=== PATIENT | female | born 1990 | race Two or more races ===

== ENCOUNTER 2024-07-31 14:05 | Day surgery (SDC) | payer MEDICAID, SELFPAY ==
[2024-07-31] VITALS (18 sets, daily range): BP systolic 95–118; BP diastolic 66–90; PULSE 69–108; RESP 16–95; TEMP 36.1–37.1; O2SAT 95–100; BMI 29.2
--- NOTE | 2024-07-31 14:42 | PD.EDVAGBL ---
ED OB Contraction Preg RMI/HPI General Chief complaint: Recheck/Abnormal Lab/Rx Stated complaint: Referred by PCP for possible retained placenta Time Seen by Provider: 07/31/24 14:27 Source: patient Arrival date/time: 07/31/24 14:05 34-year-old female with no known medical history presents to the emergency room with a chief complaint of vaginal spotting generalized weakness fatigue x 1 week. Patient states she was sent over by her OB to rule out any retained products as she had a miscarriage on 07/01/2024. Mode of arrival: ambulatory Limitations: no limitations Related Data Home Medications ?Medication ?Instructions ?Recorded ?Confirmed [id number]-[id number] 1 mg 1 tab PO QDAY 02/01/21 02/01/21 tablet Allergies Allergy/AdvReac Type Severity Reaction Status Date / Time No Known Allergies Allergy Verified 09/11/22 22:21 ED Exam General Limitations: Present no limitations Course Orders Category Date Time Status US transvaginal Stat Exams 07/31/24 14:36 Ordered ABO/RH Type Stat Lab 07/31/24 14:36 Ordered Beta HCG,Quantitative Stat Lab 07/31/24 14:36 Ordered CBC Stat Lab 07/31/24 14:36 Ordered CMP [Comprehensive Metabolic Panel] Stat Lab 07/31/24 14:36 Ordered UA [Urinalysis] Stat Lab 07/31/24 14:36 Ordered Vital Signs Vital signs: Vital Signs Temperature 98.3 F 07/31/24 14:32 Pulse Rate 108 H 07/31/24 14:32 Respiratory Rate 16 07/31/24 14:32 Blood Pressure 109/74 07/31/24 14:32 Pulse Oximetry (%) 98 07/31/24 14:32 Oxygen Delivery Method Room Air 07/31/24 14:32 Discharge Plan Prescriptions/Referrals Prescriptions/Med Rec: No Action 1 mg Tablet 1 tab PO QDAY Patient/Caregiver Discharge Instructions Print Language: Moldovan
--- NOTE | 2024-07-31 15:18 | XR_ITS ---
Examination: Pelvic ultrasound, transabdominal, complete Technique: Transabdominal ultrasound of the pelvis performed using grayscale imaging Date and time of exam: July 31, 2024 1521 hours INDICATIONS: Heavy vaginal bleeding beginning 2 weeks ago FINDINGS: Uterus 11.3 cm endometrial stripe 3.0 cm with heterogeneous echogenicity in the fundus and body endometrial regions No recognizable intrauterine gestation Right ovary 3.0 cm arterial flow 12 mm follicle Left ovary 2.3 cm arterial flow IMPRESSION: Findings most consistent with retained products of conception
[2024-07-31 15:22] LABS: Basophils % (Auto) 0 % (0-2.5); Eosinophils % (Auto) 0 % (0-10); Immature Granulocytes % (Auto) 1 % (0-0); Immature Granulocytes Auto 0.08 Thou/mm3 (0.00-0.00); Lymphocytes # (Auto) 2.3 Thou/mm3 (1.0-4.8); Lymphocytes % (Auto) 22 % (10-50); Mean Corpuscular HGB Conc 31.3 g/dl (31.0-37.0); Mean Corpuscular Hemoglobin 25.7 pg (25.0-35.0); Mean Corpuscular Volume 82 fL (80-100); Monocytes # (Auto) 0.5 Thou/mm3 (0.0-0.8); Monocytes % (Auto) 5 % (0-12); Neutrophils # (Auto) 7.5 Thou/mm3 (1.8-7.7); Neutrophils % (Auto) 72 % (37-80); Nucleated Red Blood Cell # 0.02 Thou/mm3 (0.00-0.00); Nucleated Red Blood Cell % 0 /100 WBC (0); Platelet Count 513 Thou/mm3 (140-440); RDW Standard Deviation 45.4 fL (36.4-46.3); Red Blood Count 2.41 Miln/mm3 (4.00-5.20); White Blood Count 10.3 Thou/mm3 (3.6-11.0)
[2024-07-31 15:23] LABS: Collection Type, Urine Clean Catch
[2024-07-31 15:26] LABS: Hematocrit 19.8 % (36.0-46.0); Hemoglobin 6.2 g/dL (12.0-16.0)
--- NOTE | 2024-07-31 15:28 | PD.EDRME ---
Rapid Medical Screening Exam RME Arrival date/time: 07/31/24 14:05 34-year-old female with no known medical history presents to the emergency room with a chief complaint of vaginal spotting generalized weakness fatigue x 1 week. Patient states she was sent over by her OB to rule out any retained products as she had a miscarriage on 07/01/2024. I have greeted and performed a focused initial assessment of this patient. A comprehensive ED assessment and evaluation of the patient, analysis of all test results, and completion of the medical decision making process will be conducted by additional ED providers. Chief Complaint: Recheck/Abnormal Lab/Rx Time Seen by Provider: 07/31/24 14:27 Vital signs: Vital Signs Temperature 98.3 F 07/31/24 14:32 Pulse Rate 108 H 07/31/24 14:32 Respiratory Rate 16 07/31/24 14:32 Blood Pressure 109/74 07/31/24 14:32 Pulse Oximetry (%) 98 07/31/24 14:32 Oxygen Delivery Method Room Air 07/31/24 14:32 Vital signs reviewed by provider: Yes
[2024-07-31 15:33] LABS: Bilirubin,Urine Negative (Negative); Blood,Urine 1+ (Negative); Clarity,Urine Clear (Clear/Hazy); Color,Urine Lt-Yellow (Lt Yel-Yel); Glucose, Urine Negative (Negative); Ketones,Urine Negative (Negative); Leukocyte Esterase,Urine Positive (Negative); Nitrite,Urine Negative (Negative); Protein,Urine Negative (Neg - Trace); RBC,Urine 4 /hpf (0-3); Specific Gravity,Urine 1.021 (1.001-1.035); Squamous Epithelial Cell,Urine 5 /hpf (0-5); Urobilinogen,Urine Negative mg/dL (0.0-1.0); WBC,Urine 23 /hpf (0-5)
[2024-07-31 15:49] LABS: Alanine Aminotransferase 13 U/L (10-49); Albumin, Serum 4.6 gm/dL (3.5-5.0); Albumin/Globulin Ratio 1.4 (1.2-2.2); Alkaline Phosphatase 103 U/L (46-116); Anion Gap 11 (7-16); Aspartate Amino Transferase 15 U/L (0-34); BUN/Creatinine Ratio 16 Ratio (12-20); Bilirubin,Total 0.4 mg/dL (0.3-1.2); Blood Urea Nitrogen 11 mg/dL (9-23); Calcium 9.4 mg/dL (8.3-10.6); Calcium (Corrected) 9.4 mg/dL (8.5-10.1); Carbon Dioxide 23.9 mMol/L (20.0-31.0); Chloride 106 mMol/L (98-107); Creatinine (Component) 0.7 mg/dL (0.6-1.3); Estimated Creatinine Clearance 111.8 mL/min (>60); Globulin 3.2 gm/dL (2.3-3.5); Glucose 100 mg/dL (74-106); Osmolality,Calculated 280 (275-295); Potassium 3.8 mMol/L (3.4-5.1); Sodium 141 mMol/L (136-145); Total Protein 7.8 gm/dL (5.7-8.2); eGFR > 60 See Note
[2024-07-31 15:57] LABS: Partial Thromboplastin Time 23.6 Seconds (22.0-36.0); Prothrombin Time 10.7 Seconds (9.0-12.2)
[2024-07-31 16:15] LABS: Beta HCG,Quantitative 17643 mIU/mL (<5.0)
--- NOTE | 2024-07-31 18:40 | PD.EDVAGBL ---
ED OB Contraction Preg RMI/HPI General Chief complaint: Recheck/Abnormal Lab/Rx Stated complaint: Referred by PCP for possible retained placenta Time Seen by Provider: 07/31/24 14:27 Arrival date/time: 07/31/24 14:05 34-year-olD female, G5, P4 SAB 1, presents to the emergency room with a chief complaint of severe vaginal bleeding, fatigue and tiredness. Patient indicates on July 01 when she was approximately 8 weeks along, she suffered a miscarriage. She had some mild bleeding following the miscarriage and then on July 17 she began bleeding heavily. She presented to [facility] emergency room on 2 different occasions and they discharged her home. She was seen by her OB physician today and due to her symptoms and significant vaginal bleeding, she was sent here for further workup and evaluation. Patient indicates that she has been passing very large clots approximately the 6 cm wide by 12 cm long and her maxi pads. She is going through approximately 3 maxi pads per hour. Associated symptoms also include fever. Mode of arrival: ambulatory Limitations: no limitations RME / HPI RME / HPI Narrative: 07/31/24 14:05 34-year-old female with no known medical history presents to the emergency room with a chief complaint of vaginal spotting generalized weakness fatigue x 1 week. Patient states she was sent over by her OB to rule out any retained products as she had a miscarriage on 07/01/2024. I have greeted and performed a focused initial assessment of this patient. A comprehensive ED assessment and evaluation of the patient, analysis of all test results, and completion of the medical decision making process will be conducted by additional ED providers. 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 NOW Care 07/31/24 18:52 Active Milk Wagon Driver STAT Care 07/31/24 19:00 Active Continuous Pulse Oximetry Care 07/31/24 18:46 Active Continuous Pulse Oximetry STAT Care 07/31/24 19:00 Active EKG (ED ONLY) *Do not use* NOW Care 07/31/24 19:00 Active In and Out Catheter X1PRN Care 07/31/24 19:00 Active Insert IV NOW Care 07/31/24 19:00 Active NPO STAT Care 07/31/24 19:00 Active Obtain Written Consent For: NOW Care 07/31/24 18:46 Active Strict Intake and Output Routine Care 07/31/24 19:00 Ordered Transfuse,blood/blood products NOW Care 07/31/24 18:44 Active Vital Signs, Non-Routine Timed Care 07/31/24 18:53 Ordered EKG (ED Only) Stat Exams 07/31/24 19:00 Ordered US OB transvaginal Stat Exams 07/31/24 19:09 Ordered US pelvic comp SEPSIS PROTOCOL Stat Exams 07/31/24 19:09 Ordered US pelvic complete Stat Exams 07/31/24 15:18 Completed XR chest 1V portable Stat Exams 07/31/24 19:00 Ordered Arterial Blood Gas Stat Lab 07/31/24 19:02 Ordered B-Type Natriuretic Peptide Stat Lab 07/31/24 19:31 Received Beta HCG,Quantitative Stat Lab 07/31/24 14:52 Completed Blood Culture (Lab) Stat Lab 07/31/24 19:21 Received CBC Auto Diff Post-Transfusion Stat Lab 07/31/24 19:31 Received CBC Stat Lab 07/31/24 14:52 Completed CMP [Comprehensive Metabolic Panel] Stat Lab 07/31/24 14:52 Completed FFP [Fresh Frozen Plasma] Stat Lab 07/31/24 14:52 Results Hgb and Hct Post-Transfusion Stat Lab 07/31/24 19:31 Received LDH (Lactate Dehydrogenase) Stat Lab 07/31/24 19:21 Received Lactate (Lactic Acid) Stat Lab 07/31/24 19:21 Received Lipase Stat Lab 07/31/24 19:21 Received Magnesium Stat Lab 07/31/24 19:21 Received PT [Prothrombin Time with INR] Stat Lab 07/31/24 14:52 Completed PTT [Partial Thromboplastin Time] Stat Lab 07/31/24 14:52 Completed Partial Thromboplastin Time Stat Lab 07/31/24 19:21 Received Phosphorous Stat Lab 07/31/24 19:21 Received Procalcitonin Stat Lab 07/31/24 19:21 Received Prothrombin Time with INR Stat Lab 07/31/24 19:21 Received Red Blood Cells Stat Lab 07/31/24 14:52 Results Troponin I Stat Lab 07/31/24 19:21 Received Type and Screen Stat Lab 07/31/24 14:52 Results UA [Urinalysis] Stat Lab 07/31/24 15:15 Completed Urinalysis Stat Lab 07/31/24 19:00 Ordered Urine Culture Stat Lab 07/31/24 19:00 Ordered Acetaminophen Tab [Tylenol Tab] Med 07/31/24 18:44 Discontinued 650 mg PO X1 ONE DiphenhydrAMINE [Benadryl] Med 07/31/24 18:44 Discontinued 25 mg PO X1 ONE Doxycycline Inj [Vibramycin Inj] 100 mg Med 07/31/24 19:00 Active Sodium Chloride 0.9% (Pop) [NS 0.9% mini bag] 100 ml IV X1 Furosemide [Lasix Inj] Med 07/31/24 18:49 Discontinued 40 mg IVP X1 ONE Piper/Tazo 3.375 gm Premix [Zosyn] Med 07/31/24 19:03 Discontinued 3.375 gm in 50 ml IV X1 Sodium Chloride 0.9% 1000 ml [Ns] 1,572 ml Med 07/31/24 19:00 Active IV 1,572 mls/hr Tranexamic Acid 1,000 mg Ivpb [Tranexamic Acid Ivpb] Med 07/31/24 19:19 Active 1,000 mg in 100 ml IV [id number] Oxygen Delivery NOW RT 07/31/24 19:00 Active Vital Signs Vital signs: Vital Signs Temperature 98.3 F 07/31/24 14:32 Pulse Rate 108 H 07/31/24 14:32 Respiratory Rate 16 07/31/24 14:32 Blood Pressure 109/74 07/31/24 14:32 Pulse Oximetry (%) 98 07/31/24 14:32 Oxygen Delivery Method Room Air 07/31/24 14:32 Vaginal Bleeding Evaluation data Interpretation Summary: PELVIC ULTRASOUND: FINDINGS: Uterus 11.3 cm endometrial stripe 3.0 cm with heterogeneous echogenicity in the fundus and body endometrial regions No recognizable intrauterine gestation Right ovary 3.0 cm arterial flow 12 mm follicle Left ovary 2.3 cm arterial flow IMPRESSION: Findings most consistent with retained products of conception Medications / Prescriptions Medication administrations:: Medication Administration History Sodium Chloride (Ns) 1,572 mls @ 1,572 mls/hr 30 ml/kg infuse over 60 min (1572 ml) IV .Q1H ONE Stop: 07/31/24 19:59 Doxycycline Hyclate 100 mg/ (Sodium Chloride) 100 mls @ 100 mls/hr IV X1 ONE Stop: 07/31/24 19:59 Tranexamic Acid (Tranexamic Acid Ivpb) 1,000 mg in 100 mls @ 200 mls/hr IV [id number] PRN PRN Reason: VAG BLEED - SEV (PER DR. RAINEY) Discontinued Medications Acetaminophen (Acetaminophen 325 Mg Tablet) 650 mg PO X1 ONE Stop: 07/31/24 18:45 Diphenhydramine HCl (Diphenhydramine 25 Mg Capsule) 25 mg PO X1 ONE Stop: 07/31/24 18:45 Furosemide (Furosemide Inj 10 Mg/Ml Vial 2 Ml) 40 mg IVP X1 ONE Stop: 07/31/24 18:50 Piperacillin/Tazobactam/Dextrose (Zosyn) 3.375 gm in 50 mls @ 100 mls/hr IV X1 ONE Stop: 07/31/24 19:32 Consultations Consultation(s) initiated? (list below): Yes Consultation #1 (Physician, Specialty, Details): Dr. Rainey, [facility] [employer]SEL[employer]. Requests TXA 1Gm IV Consultation #2 (Physician, Specialty, Details): Dr. Rainey calls back indicating US reveals retained POC. Will schedule patient for D&C in the OR. Diagnosis Vaginal Bleeding Differential Diagnosis: missed , dysfunctional uterine bleeding, menometrorrhagia, incomplete and vaginal bleeding Most likely diagnosis given after review of the tests above:: SEPSIS SECONDARY TO RETAINED PRODUCTS OF CONCEPTION. Admission Indicated Admission indicated?: indicated Explain why admission is indicated or not indicated:: PATIENT WILL NEED TO BE ADMITTED FOR D&C AND BLOOD TRANSFUSIONS. Discharge Plan Prescriptions/Referrals Prescriptions/Med Rec: No Action 1 mg Tablet 1 tab PO QDAY Referrals: Trell Serna MD [Primary Care Provider] - In 1 week Patient/Caregiver Discharge Instructions Print Language: Chinese
--- NOTE | 2024-07-31 19:00 | EKG_ITS ---
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
--- NOTE | 2024-07-31 19:00 | XR_ITS ---
Examination: PA chest single view TECHNIQUE: Upright PA chest single view Exam date and time: July 31, 2024, 194 hours INDICATIONS: Fatigue today, sepsis alert FINDINGS: Normal heart size. Lungs are clear. Osseous structures are intact. IMPRESSION: No active disease
[2024-07-31 19:46] LABS: Lactate (Lactic Acid) 0.6 mMol/L (0.4-2.0)
--- NOTE | 2024-07-31 19:50 | PD.GYNHP ---
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 MEDRANO is a 34 year old female , presented to ER with heavy vaginal bleeding , saturating maxi pads within 30 minutes . Patient also feels she had fever at home , although has remained afebrile on presentation. Pt had a miscarraige in 1st week of June. Patient reports that she went to her OB in [place] and was given oral meds for completion of . However she kept on bleeding and presented to [place] ER and has been bleeding since then. But today patient reported heavy bleeding which made her come to ER here. 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 MIXER Vital Signs Temp Pulse Resp BP Pulse Ox O2 Del Method 98.3 F 108 H 16 109/74 98 Room Air 07/31/24 14:32 07/31/24 14:32 07/31/24 14:32 07/31/24 14:32 07/31/24 14:32 07/31/24 14:32 Constitutional Constitutional: no acute distress Routine HEENT Exam Head: Present normocephalic and atraumatic Eye: Present EOMI and PERRL ENT: Present mucous membranes moist Routine Neck Exam Neck: Present supple and trachea midline Routine Respiratory Exam Respiratory: Present chest non-tender, lungs clear, normal breath sounds and no resp distress Routine Cardiovascular Exam Cardiovascular: Present RRR Routine Abdominal Exam Abdominal: Present soft and normoactive bowel sounds Routine Exam Comments: defeered Routine Extremities Exam Extremities: Present full ROM Routine Skin Exam Skin: Present intact and dry Routine Neurological Exam Neurological: Present alert, oriented X3 and CN II-XII intact Routine Psychiatric Exam Psychiatric: Present normal affect and normal thought process PIGMENT MIXER - Results Labs 07/31/24 19:31 07/31/24 14:52 Labs: Short CBC 07/31/24 Range/Units 14:52 WBC 10.3 (3.6-11.0) Thou/mm3 Hgb 6.2 L* (12.0-16.0) g/dL Hct 19.8 L* (36.0-46.0) % Plt Count 513 H (140-440) Thou/mm3 BMP 07/31/24 14:52 Sodium 141 Potassium 3.8 Chloride 106 Carbon Dioxide 23.9 BUN 11 Creatinine 0.7 Glucose 100 Calcium 9.4 Liver Function 07/31/24 Range/Units 14:52 Total Bilirubin 0.4 (0.3-1.2) mg/dL AST 15 (0-34) U/L ALT 13 (10-49) U/L Alkaline Phosphatase 103 (46-116) U/L Albumin 4.6 (3.5-5.0) gm/dL Urine 07/31/24 Range/Units 15:15 Urine Color Lt-Yellow (Lt Yel-Yel) Urine Clarity Clear (Clear/Hazy) Urine pH 7.0 (5.0-7.0) Ur Specific [place] 1.021 (1.001-1.035) Urine Protein Negative (Neg - Trace) Urine Glucose (UA) Negative (Negative) Impressions Impression: 34 y/o P4 with possible incomplete Symptomatic anemia from Heavy vaginal bleeding Hb 6.2 on arrival, tachycardic US: Suggestive of retained products of conception [facility] [place] [address] Sepsis work up NEGATIVE Normal procalcitonin and lactic acid Antibiotics ordered already Hamzah provider Assessment and Plan Additional Assessment & Plan Additional Plan: 1) antibiotics ordered 2) 3units PRBC 3) fIbrinogen pending '4) Suction D&C Quality Measures Quality Measures VTE prophylaxis
[2024-07-31 19:57] LABS: Basophils % (Auto) 0 % (0-2.5); Eosinophils % (Auto) 0 % (0-10); Immature Granulocytes % (Auto) 1 % (0-0); Immature Granulocytes Auto 0.05 Thou/mm3 (0.00-0.00); Lymphocytes # (Auto) 2.3 Thou/mm3 (1.0-4.8); Lymphocytes % (Auto) 22 % (10-50); Mean Corpuscular HGB Conc 31.4 g/dl (31.0-37.0); Mean Corpuscular Hemoglobin 26.1 pg (25.0-35.0); Mean Corpuscular Volume 83 fL (80-100); Monocytes # (Auto) 0.4 Thou/mm3 (0.0-0.8); Monocytes % (Auto) 4 % (0-12); Neutrophils # (Auto) 7.5 Thou/mm3 (1.8-7.7); Neutrophils % (Auto) 73 % (37-80); Nucleated Red Blood Cell # 0.03 Thou/mm3 (0.00-0.00); Nucleated Red Blood Cell % 0 /100 WBC (0); Platelet Count 495 Thou/mm3 (140-440); RDW Standard Deviation 46.2 fL (36.4-46.3); Red Blood Count 2.34 Miln/mm3 (4.00-5.20); White Blood Count 10.3 Thou/mm3 (3.6-11.0)
[2024-07-31] MEDS: PIPER/TAZO 3.375 GM PREMIX 3.375 GM/50 ML BAG IV (20:00)
[2024-07-31 20:06] LABS: Partial Thromboplastin Time 23.1 Seconds (22.0-36.0); Prothrombin Time 10.6 Seconds (9.0-12.2)
[2024-07-31 20:12] LABS: Hematocrit 19.4 % (36.0-46.0); Hemoglobin 6.1 g/dL (12.0-16.0)
[2024-07-31 20:14] LABS: Allen Test Performed/OK; Base Excess 0 (-3-3); HCO3 24 mEq/L (20-26); Inspired Oxygen, FIO2 21 %; O2 Saturation 67 % (91-98); PCO2 39 mmHg (32.0-48.0); Puncture Site Left Radial
[2024-07-31 20:17] LABS: LDH (Lactate Dehydrogenase) 139 U/L (120-246); Lipase 37 U/L (12-53); Magnesium 2.2 mg/dL (1.6-2.6); Phosphorous 3.9 mg/dL (2.4-5.1); Procalcitonin 0.07 ng/ml (0.0-0.49); Troponin I < 0.002 ng/mL (0.0-0.045)
[2024-07-31 20:22] LABS: PO2 37 mmHg (83-108)
[2024-07-31 20:39] LABS: B-Type Natriuretic Peptide < 20 pg/mL (0-100)
[2024-07-31] MEDS: SODIUM CHLORIDE 0.9% 1000 ML 1,572 ML 1572 ML IV (20:43)
--- NOTE | 2024-07-31 21:07 | PC.NURSE ---
Started the Doxycycline in right hand IV as soon as medication started to go in the patient c/o pain and numbness feeling in the hand. Medication was stopped. Surgery came and took patient to surgery RN aware that the patient was not able to tolerate the medication. He took it with him to let t he Dr. Cortés know
--- NOTE | 2024-07-31 21:20 | PC.NURSE ---
19:50 PT presents via personal vehicle from home for c/o heavy vaginal bleeding with weakness after having a miscarriage in beginning of june PT GCS15, no acute distress noted, blood drawn from existing me PT placed on cardiac sonographer, BP cuff and continuous pulse ox. Pt looks in no distress noted on arrival. Pt alert at this time, pt in nad, resp are even and unlabored, skin warm and dry, pt moving all extremities. Bed side introduction and call light instructions given, verbal understanding returned. Call light placed within reach. Will continue to monitor.
--- NOTE | 2024-07-31 21:49 | SUR.PHASEI ---
2149: Pt. AAOx4, vitals stable, breathing unlabored, complaint of pain, will give pain medicine, no complaint of nausea, peripad in place, CDI, no active bleed noted, report received from MD Flor and Sol JEFFERS.
[2024-07-31] MEDS: fentaNYL CIT INJ 50 mCg/ML AMP 2ML 25 MCG IV ×2 (21:58→22:04)
--- NOTE | 2024-07-31 22:06 | ESOP_ITS ---
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 The potential benefits and risks of the procedure, the likelihood of success, and the problems related to recuperation have been discussed with patient who agrees to proceed. The possible results of nontreatment and significant alternatives to the proposed procedure have also been explained, along with the risks and benefits of the alternatives. Risks and benefits of chosen anesthetic/sedation and possible use of blood/blood products (if appropriate) were discussed.The patient was identified as Aleks Kelley the procedure verified. A time out was held reviewing the patient identifiers, procedure planned and allergies.At this point the procedure was begun. The patient was positioned and prepped in routine fashion in the dorsal lithotomy position using yellowfin stirups. On examination under anesthesia,the uterus was anteverted with 8-10 week size. Bladder was drained by catheter. A weighted speculum was then placed into the patient's posterior vagina.? A ilene was used to expose the anterior lip of the cervix which was then grasped by a single tooth tenaculum.The cervix was then very easily dilated to a size 8 Hegar dilator. Using a 8 sizesuction cannula , curretage was done. Using a blunt currete slowly and gently all triplett of the uterine cavity were curreted until a gritty sensation was felt. All the retained products were collected and sent for pathology. Utine atony was noted , misoprostol 800 given after bimanula massage. There was minimal bleeding noted and tenaculum was removed. Hemostasis was acheived with a ringed forcep on anterior cervix. Estimated blood loss (ml): 400 Surgical staff Operation Date: 07/31/24 21:15 Case Staff Anesthesiologist: Deric Flor Diagnosis Problem List Completed Was Problem List Reviewed/Reconciled?: Yes
--- NOTE | 2024-07-31 22:30 | SUR.PHASEI ---
2230: Pt. AAOx4, vitals stable, breathing unlabored, no complaint of pain or nausea, peripad in place, CDI, no active bleed noted, pt. tolerated sips of water well, pt. ate jello and tolerated well, gave report to Blanca RN prior to transfer to room 366. Family made aware of transfer to room.
[2024-08-01 00:01] VITALS: BP 90/58; PULSE 76; RESP 18; TEMP 36.3; O2SAT 97
[2024-08-01 00:03] VITALS: BMI 29.4
[2024-08-01 00:34] LABS: Fibrinogen 470 mg/dL (175-375)
[2024-08-01 00:44] VITALS: BP 95/79; PULSE 69; RESP 17; TEMP 36.2; O2SAT 95
[2024-08-01 02:34] VITALS: BP 96/66; PULSE 72; RESP 19; TEMP 36.4; O2SAT 97
[2024-08-01] MEDS: ACETAMINOPHEN IVPB 1,000 MG/100 ML VIAL 250 MG IV (03:17)
[2024-08-01 04:00] VITALS: BP 97/69; PULSE 75; RESP 17; TEMP 36.2; O2SAT 96
[2024-08-01 07:48] LABS: Basophils % (Auto) 0 % (0-2.5); Eosinophils % (Auto) 0 % (0-10); Hematocrit 29.8 % (36.0-46.0); Hemoglobin 9.9 g/dL (12.0-16.0); Immature Granulocytes % (Auto) 2 % (0-0); Immature Granulocytes Auto 0.18 Thou/mm3 (0.00-0.00); Lymphocytes % (Auto) 8 % (10-50); Mean Corpuscular HGB Conc 33.2 g/dl (31.0-37.0); Mean Corpuscular Hemoglobin 27.2 pg (25.0-35.0); Mean Corpuscular Volume 82 fL (80-100); Monocytes # (Auto) 0.1 Thou/mm3 (0.0-0.8); Monocytes % (Auto) 1 % (0-12); Neutrophils # (Auto) 11.1 Thou/mm3 (1.8-7.7); Neutrophils % (Auto) 90 % (37-80); Nucleated Red Blood Cell # 0.04 Thou/mm3 (0.00-0.00); Nucleated Red Blood Cell % 0 /100 WBC (0); Platelet Count 410 Thou/mm3 (140-440); RDW Standard Deviation 44.3 fL (36.4-46.3); Red Blood Count 3.64 Miln/mm3 (4.00-5.20); White Blood Count 12.4 Thou/mm3 (3.6-11.0)
[2024-08-01 07:53] VITALS: BP 98/67; PULSE 60; RESP 16; TEMP 36.3; O2SAT 97
--- NOTE | 2024-08-01 08:13 | ESDS_ITS ---
Planned Discharge Date 08/01/24 DS: Providers Provider Primary care physician: Trell Serna MD Attending Provider on Admission: Lenard Cortés MD Attending Provider on DC: Lenard Cortés MD Discharging Provider: Lenard Cortés MD DS: Diagnosis Problem List Completed Was Problem List Reviewed/Reconciled?: Yes Hospital Course Hospital Course Hospital course: Ms. MEDRANO is a 34 year old female para 4 s/p suction D&C secondary to incomplete has been observed overnight and received in total 3 units of packed RBC. On presentation patient's hemoglobin was 6 repeat hemoglobin 4 hours after the transfusions has resulted 9.9. Patient feels much better. Denies any dizziness. Has used only 1 pad since her surgery. 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 Signs Temp Pulse Resp BP Pulse Ox O2 Del Method O2 Flow Rate 97.4 F 60 16 98/67 97 Room Air 2 08/01/24 07:53 08/01/24 07:53 08/01/24 07:53 08/01/24 07:53 08/01/24 07:53 08/01/24 07:53 07/31/24 21:59 Constitutional Constitutional: no acute distress Routine HEENT Exam Head: Present normocephalic and atraumatic Eye: Present EOMI and PERRL ENT: Present mucous membranes moist Routine Neck Exam Neck: Present supple and trachea midline Routine Respiratory Exam Respiratory: Present chest non-tender, lungs clear, normal breath sounds and no resp distress Routine Cardiovascular Exam Cardiovascular: Present RRR Routine Abdominal Exam Abdominal: Present soft and normoactive bowel sounds Routine Extremities Exam Extremities: Present full ROM Routine Skin Exam Skin: Present intact and dry Routine Neurological Exam Neurological: Present alert, oriented X3 and CN II-XII intact Routine Psychiatric Exam Psychiatric: Present normal affect and normal thought process Discharge Plan Plan Patient Disposition: HOME (Self Care) Disposition Comment: to OR Prescriptions/Referrals Prescriptions/Med Rec: New acetaminophen 650 mg tablet extended release 650 mg PO Q12H Qty: 14 0RF No Action 1 mg Tablet 1 tab PO QDAY Referrals: Trell Serna MD [Primary Care Provider] - In 1 week Patient/Caregiver Discharge Instructions Print Language: Hungarian Stand Alone Forms: Alexsandra Award Info., Patient Portal Info Letter Discharge Order Discharge Orders: Discharge (Routine); Ordered 08/01/24 Ordered By: Lenard Cortés
[2024-08-01 12:00] VITALS: BP 107/57; PULSE 76; RESP 16; TEMP 36.4; O2SAT 97
== END 2024-08-01 14:08 | disposition home or self-care (01) ==
LOC: SERX 14:46 → S2EX 19:58 → S3NX 22:56
PROVIDERS: Nurse Practitioner Family; Physician Assistant; Emergency Provider Emergency Medicine; PCP Family Medicine; Referring Provider Student in an Organized Health Care Education/Training Program; Visit Provider Student in an Organized Health Care Education/Training Program
PROC: (CPT 58120; principal; 2024-07-31 21:00)
DX: O03.1 Delayed or excessive hemorrhage following incomplete spontaneous abortion (principal); D50.0 Iron deficiency anemia secondary to blood loss (chronic)
CPT/HCPCS: 59812; 36415; 36430; 36600; 71045; 76856; 80053; 81001; 82803; 83605; 83615; 83690; 83735; 83880; 84100; 84145; 84484; 84702; 85014; 85018; 85025; 85384; 85610; 85730; 86850; 86900; 86901; 86923; 86927; 87040; 87086; 99285; A4217; J0131; J1100; J2405; J2543; J2704; J3010; J7030; P9016; S0191; A9270